=== PATIENT | male | born 1990 | race Native Hawaiian/Other Pacific Islander ===

== ENCOUNTER 2022-02-15 16:45 | Inpatient (IN) | payer OTHER ==
[~2022-02-15] VITALS: Ht 167.6 cm; Wt 101.5 kg
[2022-02-15] MEDS ORDERED: NAPR220C14 PO (16:53)
[2022-02-15 18:49] LABS: BASO # 0.1 10^3/uL (0.0-0.2); BASO % 0.4 % (0.0-1.0); EOS # 0.4 10^3/uL (0.0-0.5); EOS % 2.7 % (0.0-3.0); HEMATOCRIT 45.2 % (42.0-52.0); HEMOGLOBIN 14.6 g/dl (13.5-17.5); LYMPH # 1.7 10^3/uL (1.5-5.0); LYMPH % 12.1 % (24.0-44.0); MEAN CORPUSCULAR HEMOGLOBIN 28.2 pg (27.0-33.0); MEAN CORPUSCULAR HGB CONC 32.3 g/dl (32.0-36.5); MEAN CORPUSCULAR VOLUME 87.4 fl (80.0-96.0); MONO % 7.1 % (2.0-8.0); NEUTROPHILS # 10.9 10^3/uL (1.5-8.5); NEUTROPHILS % 77.3 % (36.0-66.0); PLATELET COUNT, AUTOMATED 263 10^3/uL (150-450); RED BLOOD COUNT 5.17 10^6/uL (4.30-6.10); WHITE BLOOD COUNT 14.1 10^3/uL (4.0-10.0)
[2022-02-15] MEDS ORDERED: VANCOMYCIN HCL 2,000 MG in D5W 500 ML IV ONE (18:55)
[2022-02-15] MEDS ORDERED: VANCOMYCIN HCL 1,000 MG, VIAL MATE ADAPTER 1 EACH in NS 250 ML IV ONE ×2 (19:00→20:00)
[2022-02-15] MEDS ORDERED: ONDANSETRON 4MG 2ML VIAL IV ONE (19:00)
[2022-02-15] MEDS ORDERED: PIPERACILLIN/TAZOBACTAM SOD 4.5 GM in D5W MINI-BAG PLUS 50 ML IV ONE (19:00)
[2022-02-15] MEDS ORDERED: MORPHINE 4 MG/ML 1ML VIAL/SYRINGE IV ONE (19:00)
[2022-02-15] MEDS ORDERED: NS IV ONE (19:00)
[2022-02-15 19:19] LABS: ERYTHROCYTE SEDIMENTATION RATE 29 mm/hr (0-15)
[2022-02-15] MEDS ORDERED: BOOSTRIX/ADACEL VACCINE (DIPHTH/PERTUSS/ACELL/TETANUS) 0.5ML SYR IM ONE (19:30)
[2022-02-15] MEDS ORDERED: CIPR500T39 PO (20:22)
[2022-02-15] MEDS ORDERED: HOME MED LIST COMPLETE! XX SCH (20:25)
[2022-02-15 21:14] LABS: RSV AMPLIFICATION NEGATIVE (NEGATIVE)
[2022-02-15] MEDS ORDERED: ACETAMINOPHEN TAB 650MG DOSE (2X325MG) PO PRN (21:30)
[2022-02-15] MEDS ORDERED: VANCOMYCIN HCL 1,000 MG, VIAL MATE ADAPTER 1 EACH in NS 250 ML IV SCH (22:00)
[2022-02-15] MEDS: NS 1,000 ML IV SCH (23:29)
[2022-02-16] MEDS: PIPERACILLIN/TAZOBACTAM SOD 4.5 GM in D5W MINI-BAG PLUS 50 ML IV SCH ×2 (02:54→08:16)
[2022-02-16] MEDS ORDERED: VANCOMYCIN HCL 750 MG, VIAL MATE ADAPTER 1 EACH in D5W 250 ML IV SCH (04:00)
[2022-02-16] MEDS: VANCOMYCIN HCL 750 MG, VIAL MATE ADAPTER 1 EACH in D5W 250 ML IV SCH ×2 (04:13→15:42)
[2022-02-16 06:53] LABS: HEMATOCRIT 42.7 % (42.0-52.0); HEMOGLOBIN 13.5 g/dl (13.5-17.5); MEAN CORPUSCULAR HEMOGLOBIN 27.8 pg (27.0-33.0); MEAN CORPUSCULAR HGB CONC 31.6 g/dl (32.0-36.5); PLATELET COUNT, AUTOMATED 242 10^3/uL (150-450); RED BLOOD COUNT 4.85 10^6/uL (4.30-6.10); WHITE BLOOD COUNT 9.1 10^3/uL (4.0-10.0)
[2022-02-16 07:27] LABS: ALBUMIN 3.3 GM/DL (3.2-5.2); ALT/SGPT 103 U/L (12-78); BILIRUBIN,TOTAL 0.3 MG/DL (0.2-1.0); BLOOD UREA NITROGEN 15 MG/DL (7-18); CALCIUM LEVEL 8.5 MG/DL (8.5-10.1); CARBON DIOXIDE LEVEL 25 MEQ/L (21-32); CHLORIDE LEVEL 106 MEQ/L (98-107); CREATININE FOR GFR 0.94 MG/DL (0.70-1.30); GLOMERULAR FILTRATION RATE > 60.0 (>60); GLUCOSE, FASTING 132 MG/DL (70-100); MAGNESIUM LEVEL 1.8 MG/DL (1.8-2.4); SODIUM LEVEL 137 MEQ/L (136-145); TOTAL PROTEIN 6.5 GM/DL (6.4-8.2)
[2022-02-16 09:00] VITALS: BP 138/62
[2022-02-16] MEDS ORDERED: HEPARIN SOD (PORCINE) 5000UNITS/ML 1ML VIAL/SYRINGE SC SCH (09:00)
[2022-02-16] MEDS: NS 1,000 ML IV SCH (11:34)
[2022-02-16] MEDS ORDERED: fentaNYL 100 MCG/2 ML INJECTION As Ordered ONE (13:36)
[2022-02-16] MEDS ORDERED: LIDOCAINE 2% 100MG/5ML SDV (FOR ANES.) As Ordered ONE (13:36)
[2022-02-16] MEDS ORDERED: propofoL 200 MG/20 ML VIAL As Ordered ONE (13:36)
[2022-02-16] MEDS ORDERED: MIDAZOLAM INJ 2MG/2ML VIAL (J2250 PER 1MG) As Ordered ONE (13:37)
[2022-02-16] MEDS ORDERED: ceFAZolin 2 GM/D5W 50 ML IV BAG (J0690 PER 500MG) As Ordered ONE (13:43)
[2022-02-16] MEDS ORDERED: METOCLOPRAMIDE INJ 10MG/2ML VIAL (J2765 PER 1) As Ordered ONE (13:49)
[2022-02-16] MEDS ORDERED: dexameTHASONE 4 MG/ML 1ML VIAL (J1100 PER 1MG) As Ordered ONE (13:49)
[2022-02-16] MEDS ORDERED: ONDANSETRON 4MG 2ML VIAL As Ordered ONE (13:49)
[2022-02-16] MEDS ORDERED: ACETAMINOPHEN 1000MG 100ML IV BAG As Ordered ONE (14:00)
[2022-02-16] MEDS ORDERED: HYDROMORPHONE HCL 0.5 MG/ 0.5 ML SYRINGE (J1170 PER 1) IV PRN (14:15)
[2022-02-16] MEDS ORDERED: LR 1,000 ML IV SCH (14:15)
[2022-02-16] MEDS ORDERED: METOCLOPRAMIDE INJ 10MG/2ML VIAL (J2765 PER 1) IV PRN (14:15)
[2022-02-16] MEDS ORDERED: ONDANSETRON 4MG 2ML VIAL IV PRN (14:15)
[2022-02-16] MEDS ORDERED: oxyCODONE 5MG TAB PO PRN (14:15)
[2022-02-16] MEDS: fentaNYL 100 MCG/2 ML INJECTION IV PRN ×2 (14:51→14:55)
[2022-02-16 15:20] VITALS: BP 121/82
[2022-02-16 15:50] VITALS: BP 110/70
[2022-02-16] MEDS ORDERED: BACT800T5 PO (15:53)
[2022-02-16] MEDS ORDERED: ACET1TAB55 PO (15:53)
[2022-02-16] MEDS ORDERED: OXYC-141 PO (15:56)
[2022-02-16] MEDS ORDERED: PIPERACILLIN/TAZOBACTAM SOD 4.5 GM in D5W MINI-BAG PLUS 50 ML IV SCH (16:00)
[2022-02-16 16:20] VITALS: BP 108/64
[2022-02-16] MEDS ORDERED: OXYC-517 PO (16:27)
== END 2022-02-16 16:50 | disposition home or self-care (01) | DRG 572 ==
LOC: M ED 16:45 → EEVIPCON 21:29 → M ED INP 21:29 → M MS5PR 02-16 15:15
PROVIDERS: ADMIT Family Medicine; ATTEND Family Medicine
PROC: 0JBF0ZZ Excision of Left Upper Arm Subcutaneous Tissue and Fascia, Open Approach (ICD-10-PCS; principal; 2022-02-16 10:00)
DX: L03.114 Cellulitis of left upper limb (principal)

== ENCOUNTER 2022-06-18 10:20 | Emergency (ER) | payer OTHER ==
[~2022-06-18] VITALS: Ht 167.6 cm; Wt 98.9 kg
[~2022-06-18 10:20] MED LIST: ACET1TAB55 PO; BACT800T5 PO; CIPR500T39 PO; NAPR220C14 PO; OXYC-141 PO; OXYC-517 PO
[2022-06-18] MEDS ORDERED: NS 1,000 ML IV ONE (11:10)
[2022-06-18] MEDS ORDERED: KETOROLAC 30 MG/ML 1ML VIAL IV ONE (11:10)
[2022-06-18 11:43] LABS: BASO % 0.7 % (0.0-1.0); EOS # 0.3 10^3/uL (0.0-0.5); EOS % 6.6 % (0.0-3.0); HEMATOCRIT 44.3 % (42.0-52.0); HEMOGLOBIN 14.6 g/dl (13.5-17.5); LYMPH # 1.6 10^3/uL (1.5-5.0); LYMPH % 37.9 % (24.0-44.0); MEAN CORPUSCULAR HEMOGLOBIN 28.2 pg (27.0-33.0); MEAN CORPUSCULAR VOLUME 85.5 fl (80.0-96.0); MONO # 0.3 10^3/uL (0.0-0.8); MONO % 7.1 % (2.0-8.0); NEUTROPHILS % 47.5 % (36.0-66.0); PLATELET COUNT, AUTOMATED 240 10^3/uL (150-450); RED BLOOD COUNT 5.18 10^6/uL (4.30-6.10); WHITE BLOOD COUNT 4.2 10^3/uL (4.0-10.0)
[2022-06-18 12:31] LABS: ALKALINE PHOSPHATASE 77 U/L (46-116); ALT/SGPT 47 U/L (7.0-40); AST/SGOT 23 U/L (<34); BILIRUBIN,TOTAL 0.5 MG/DL (0.3-1.2); BLOOD UREA NITROGEN 15 MG/DL (9-23); CALCIUM LEVEL 9.3 MG/DL (8.5-10.1); CARBON DIOXIDE LEVEL 29 MMOL/L (20-31); CHLORIDE LEVEL 107 MMOL/L (98-107); CREATININE FOR GFR 0.89 MG/DL (0.70-1.30); GLOMERULAR FILTRATION RATE > 60.0 (>60); GLUCOSE, FASTING 87 MG/DL (60-100); POTASSIUM SERUM 4.4 MMOL/L (3.5-5.1); SODIUM LEVEL 142 MMOL/L (136-145); TOTAL PROTEIN 6.8 G/DL (5.7-8.2)
[2022-06-18 13:20] VITALS: BP 128/74
== END 2022-06-18 13:22 | disposition home or self-care (01) ==
LOC: M ED 10:20
DX: R51.9 Headache, unspecified (principal)
CPT/HCPCS: 80053; 81001; 85025; 87428; 96361; 96374; 99284; J1885

== ENCOUNTER 2023-04-10 15:08 | Emergency (ER) | payer OTHER ==
[~2023-04-10] VITALS: Ht 167.6 cm; Wt 91.4 kg
[2023-04-10 16:33] LABS: RSV AMPLIFICATION NEGATIVE (NEGATIVE)
[2023-04-10] MEDS ORDERED: BENZ200C70 PO (18:53)
[2023-04-10] MEDS ORDERED: VENTAER INH (18:53)
[2023-04-10 19:01] VITALS: BP 139/84; TEMP 96.8; O2SAT 100
== END 2023-04-10 19:11 | disposition home or self-care (01) ==
LOC: M ED 15:08
DX: J06.9 Acute upper respiratory infection, unspecified (principal); R05.9 Cough, unspecified; F17.210 Nicotine dependence, cigarettes, uncomplicated